=== PATIENT | male | born 1995 | race Caucasian/White ===

== ENCOUNTER 2020-06-08 10:31 | Emergency (ER) | payer SELFPAY ==
[2020-06-08] MEDS ORDERED: ONDANSETRON 4 MG/2 ML VIAL ONE (11:35)
[2020-06-08] MEDS ORDERED: NA CHLORIDE 0.9% 1,000 ML ONE (11:35)
[2020-06-08 11:57] LABS: Absolute Lymphocytes (CBC) 1.7 K/uL (0.7-4.9); Basophils % 0.8 % (0-1.3); Hematocrit 45.4 % (39.6-49.0); Lymphocytes % 22.6 % (15.3-44.8); MPV 9.8 fL (7.6-11.3); RBC Red Blood Cell Count 4.89 M/uL (4.33-5.43)
[2020-06-08 12:15] LABS: Albumin 4.5 g/dL (3.4-5.0); Bilirubin Direct 0.2 mg/dL (0-0.2); Bilirubin Total 0.8 mg/dL (0.2-1.0); Potassium 3.1 mmol/L (3.5-5.1); Protein, Total 7.8 g/dL (6.4-8.2)
--- NOTE | 2020-06-08 12:16 | RAD REPORT ---
EXAM DESCRIPTION: CT - Abdomen Pelvis W Contrast - 06/08/2020 12:03 pm CLINICAL HISTORY: Abdominal pain COMPARISON: 2013 TECHNIQUE: Computed axial tomography of the abdomen pelvis was obtained. 100 cc Isovue-300 was admin istered intravenously. Oral contrast was not requested which limits evaluation of bowel. All CT scans are performed using dose optimization technique as appropriate and may include automated exposure control or mA/KV adjustment according to patient size. FINDINGS: The liver, spleen, pancreas, adrenal and left kidney appear unremarkable. A 5 millimeter c alculus right kidney. No hydronephrosis There is no evidence of diverticulitis. Normal appendix Moderate amount of stool within the colon IMPRESSION: A 5 millimeter nonobstructing right renal calculus
--- NOTE | 2020-06-08 13:48 | EDPHYS ---
Physician Documentation [facility] Name: Peter Amado Age: 25 yrs Sex: Male : 1995 Arrival Date: 06/08/2020 Time: 10:34 Bed 13 Private MD: ED Physician Devendra Aguilera HPI: 06/08 13:12 This 25 yrs old Male presents to ER via Ambulatory with complaints of rn nausea/vomiting. 13:12 The patient presents to the emergency department with nausea, vomiting. Onset: The rn symptoms/episode began/occurred 3 day(s) ago. Possible causes: unknown. The symptoms are aggravated by nothing. The symptoms are alleviated by nothing. Severity of symptoms: At their worst the symptoms were moderate in the emergency department the symptoms are unchanged. The patient has not experienced similar symptoms in the past. The patient has not recently seen a physician. Reports 3 days of right flank pain and nausea/vomiting, no blood in emesis, no trauma, no sob, no cough/fever/chest pain. Urinating ok. Reports hx of kidney failure so wanted to come in to check his kidneys. . Historical: - Allergies: 10:51 No Known Allergies; ca1 - Home Meds: 10:51 Ambien Oral [Active]; ca1 - PMHx: 10:51 Seizures; ca1 - PSHx: 10:51 Hernia repair; ca1 - Immunization history:: Adult Immunizations up to date, Flu vaccine is not up to date. - Social history:: Smoking status: Patient reports the use of cigarette tobacco products, smokes one pack cigarettes per day. - Family history:: not pertinent. - Hospitalizations: : No recent hospitalization is reported. ROS: 13:12 Constitutional: Negative for chills, and weight loss, Eyes: Negative for injury, pain, rn redness, and discharge, Cardiovascular: Negative for chest pain, palpitations, and edema, Respiratory: Negative for shortness of breath, cough, wheezing, and pleuritic chest pain, Abdomen/GI: + nausea/vomiting Back: Negative for injury and pain, : Negative for injury, bleeding, discharge, and swelling, MS/Extremity: Negative for injury and deformity, Skin: Negative for injury, rash, and discoloration, Neuro: Negative for headache, numbness, tingling, and seizure. Exam: 13:12 Constitutional: This is a well developed, well nourished patient who is awake, alert, rn and in no acute distress. Head/Face: Normocephalic, atraumatic. Eyes: Pupils equal round and reactive to light, extra-ocular motions intact. Lids and lashes normal. Conjunctiva and sclera are non-icteric and not injected. Cornea within normal limits. Periorbital areas with no swelling, redness, or edema. ENT: dry MM Cardiovascular: Regular rate and rhythm with a normal S1 and S2. No gallops, murmurs, or rubs. Normal PMI, no JVD. No pulse deficits. Respiratory: No increased work of breathing, no retractions or nasal flaring. Abdomen/GI: soft, non-tender Skin: Warm, dry MS/ Extremity: Pulses equal, no cyanosis. Neurovascular intact. Full, normal range of motion. Equal circumference. Neuro: Awake and alert, GCS 15, oriented to person, place, time, and situation. Cranial nerves II-XII grossly intact. Motor strength 5/5 in all extremities. Sensory grossly intact. Cerebellar exam normal. Normal gait. Vital Signs: 10:45 BP 127 / 88; Pulse 93; Resp 18 S; Temp 99.3(TE); Pulse Ox 96% on R/A; Weight 63.5 kg ca1 (R); Height 5 ft. 10 in. (177.80 cm) (R); Pain 0/10; 12:18 BP 107 / 68; Pulse 92; Resp 18; Pulse Ox 98% on R/A; zb 13:20 BP 108 / 70; Pulse 95; Resp 16; Pulse Ox 99% on R/A; zb 10:45 Body Mass Index 20.09 (63.50 kg, 177.80 cm) ca1 MDM: 11:11 Patient medically screened. rn 13:45 Differential diagnosis: viral gastroenteritis, gastroenteritis, COVID, flu, rn rhabdomyolysis, gastritis. Data reviewed: vital signs, nurses notes, lab test result(s), radiologic studies, CT scan, and as a result, I will discharge patient. Counseling: I had a detailed discussion with the patient and/or guardian regarding: the historical points, exam findings, and any diagnostic results supporting the discharge/admit diagnosis, lab results, radiology results, the need for outpatient follow up, to return to the emergency department if symptoms worsen or persist or if there are any questions or concerns that arise at home. Response to treatment: the patient's symptoms have markedly improved after treatment, and as a result, I will discharge patient. Special discussion: Based on the patient's Hx, exam, and Dx evaluation, there is no indication for emergent surgery or inpatient Tx. It is understood by the patient/guardian that if the Sx's persist or worsen they need to return immediately for re-evaluation. I discussed with the patient/guardian in detail that at this point there is no indication for admission to the hospital. It is understood, however, that if the symptoms persist or worsen the patient needs to return immediately for re-evaluation. ED course: No acute findings on CT abdomen, mild hypokalemia, improved with medication and fluids, no renal failure, no UTI, patient eager to leave, threatened to leave AMA, told results and discharged. . 06/08 11:16 Order name: Basic Metabolic Panel; Complete Time: 12:22 rn 06/08 11:16 Order name: CBC with Diff; Complete Time: 12:10 rn 06/08 11:16 Order name: Hepatic Function; Complete Time: 12: rn 06/08 11:16 Order name: Lipase; Complete Time: 12:22 rn 06/08 11:16 Order name: Flu; Complete Time: 12:43 rn 06/08 11:16 Order name: COVID-19 rn 06/08 11:16 Order name: IV Saline Lock; Complete Time: 11:53 rn 06/08 11:16 Order name: Labs collected and sent; Complete Time: 11:53 rn 06/08 11:16 Order name: CT Abd/Pelvis - IV Contrast Only; Complete Time: 12:22 rn 06/08 11:16 Order name: CK; Complete Time: 12:22 rn 06/08 12:44 Order name: Urine Dipstick-Ancillary (obtain specimen); Complete Time: 13:18 rn 06/08 13:29 Order name: Urine Dipstick--Ancillary (enter results) eb Administered Medications: 11:53 Drug: NS 0.9% 1000 ml Route: IV; Rate: 1000 ml; Site: left forearm; zb 12:20 Follow up: Response: No adverse reaction; IV Status: Completed infusion; IV Intake: zb 1000ml 11:53 Drug: Zofran (Ondansetron) 4 mg Route: IVP; Site: left forearm; zb 13:18 Follow up: Response: No adverse reaction zb Disposition: 06/08/20 13:47 Discharged to Home. Impression: Vomiting, unspecified, Dehydration, Hypokalemia. - Condition is Stable. - Discharge Instructions: Dehydration, Adult, Hypokalemia, Vomiting, Adult. - Prescriptions for Zofran ODT 4 mg Oral tablet,disintegrating - place 1 tablet by TRANSLINGUAL route every 8 hours As needed; 20 tablet. - Medication Reconciliation Form, Thank You Letter, Antibiotic Education, Prescription Opioid Use form. - Follow up: Private Physician; When: As needed; Reason: Recheck today's complaints, Re-evaluation by your physician. - Problem is new. - Symptoms have improved. Signatures: Dispatcher [employer] EDMS Devendra Aguilera MD MD rn Wu, JOSUE Cotter RN, Zipporah, RN RN tay Corrections: (The following items were deleted from the chart) 13:54 13:47 06/08/2020 13:47 Discharged to Home. Impression: Vomiting, unspecified; zb Dehydration; Hypokalemia. Condition is Stable. Forms are Medication Reconciliation Form, Thank You Letter, Antibiotic Education, Prescription Opioid Use. Follow up: Private Physician; When: As needed; Reason: Recheck today's complaints, Re-evaluation by your physician. Problem is new. Symptoms have improved. rn
--- NOTE | 2020-06-08 13:48 | ER ---
Nurse's Notes [facility] Name: Peter Amado Age: 25 yrs Sex: Male : 1995 Arrival Date: 06/08/2020 Time: 10:34 Bed 13 Private MD: Diagnosis: Vomiting, unspecified;Dehydration;Hypokalemia Presentation: 06/08 10:45 Chief complaint: Patient states: Am puking up bile for the past 3 days and pain on R ca1 flank and abdomen from throwing up. Denies diarrhea. Reports urinary frequency and urgency. Coronavirus screen: Client denies travel out of the [place] in the last 14 days. nausea, vomiting. Client presents with at least one sign or symptom that may indicate coronavirus-19. Standard/surgical mask placed on the client. Provider contacted for isolation considerations. Ebola Screen: Patient negative for fever greater than or equal to 101.5 degrees Fahrenheit, and additional compatible Ebola Virus Disease symptoms Patient denies exposure to infectious person. Patient denies travel to an Ebola-affected area in the 21 days before illness onset. No symptoms or risks identified at this time. Initial Sepsis Screen: Does the patient meet any 2 criteria? No. Patient's initial sepsis screen is negative. Does the patient have a suspected source of infection? No. Patient's initial sepsis screen is negative. Risk Assessment: Do you want to hurt yourself or someone else? Patient reports no desire to harm self or others. Onset of symptoms was June 08, 2020. 10:45 Method Of Arrival: Ambulatory ca1 10:45 Acuity: KARLEY 3 ca1 Historical: - Allergies: 10:51 No Known Allergies; ca1 - Home Meds: 10:51 Ambien Oral [Active]; ca1 - PMHx: 10:51 Seizures; ca1 - PSHx: 10:51 Hernia repair; ca1 - Immunization history:: Adult Immunizations up to date, Flu vaccine is not up to date. - Social history:: Smoking status: Patient reports the use of cigarette tobacco products, smokes one pack cigarettes per day. - Family history:: not pertinent. - Hospitalizations: : No recent hospitalization is reported. Screenin:52 Abuse screen: Denies threats or abuse. Denies injuries from another. Nutritional zb screening: No deficits noted. Tuberculosis screening: No symptoms or risk factors identified. Fall Risk None identified. Assessment: 11:50 General: Appears in no apparent distress. comfortable, Behavior is calm, cooperative, zb appropriate for age. Pain: Complains of pain in abdomen diffusely Pain currently is 5 out of 10 on a pain scale. Quality of pain is described as aching. Neuro: Level of Consciousness is awake, alert, obeys commands, Oriented to person, place, time, situation. Cardiovascular: Capillary refill < 3 seconds in bilateral fingers. Respiratory: Airway is patent Respiratory effort is even, unlabored, Respiratory pattern is regular. GI: Abdomen is flat, non-distended, Bowel sounds present X 4 quads. Abdomen is tender to palpation X 4 quads. Reports nausea, vomiting. : No signs and/or symptoms were reported regarding the genitourinary system. EENT: No signs and/or symptoms were reported regarding the EENT system. Derm: No signs and/or symptoms reported regarding the dermatologic system. Derm: Skin is intact, is healthy with good turgor, is thin, Skin is dry, Skin is normal. Musculoskeletal: Circulation, motion, and sensation intact. Capillary refill < 3 seconds, in bilateral fingers. Range of motion: intact in all extremities. 12:50 Reassessment: Patient appears in no apparent distress at this time. Patient and/or zb family updated on plan of care and expected duration. Pain level reassessed. Patient is alert/active/playful, equal unlabored respirations, skin warm/dry/pink. pt resting. in bed states he is ready to leave. ECP informed. 13:45 Reassessment: Patient appears in no apparent distress at this time. Patient and/or zb family updated on plan of care and expected duration. Pain level reassessed. Patient is alert/active/playful, equal unlabored respirations, skin warm/dry/pink. notified pt of POC, need of urine, pt states he is ready to go. Vital Signs: 10:45 BP 127 / 88; Pulse 93; Resp 18 S; Temp 99.3(TE); Pulse Ox 96% on R/A; Weight 63.5 kg ca1 (R); Height 5 ft. 10 in. (177.80 cm) (R); Pain 0/10; 12:18 BP 107 / 68; Pulse 92; Resp 18; Pulse Ox 98% on R/A; zb 13:20 BP 108 / 70; Pulse 95; Resp 16; Pulse Ox 99% on R/A; zb 10:45 Body Mass Index 20.09 (63.50 kg, 177.80 cm) ca1 ED Course: 10:34 Patient arrived in ED. ag5 10:50 Triage completed. ca1 10:51 Arm band placed on right wrist. ca1 11:11 Devendra Aguilera MD is Attending Physician. rn 11:16 Karen Diaz RN is Primary Nurse. zb 11:52 Patient has correct armband on for positive identification. Pulse ox on. NIBP on. Door zb closed. Noise minimized. 11:52 Missed attempt(s): 20 gauge in right antecubital area. Inserted saline lock: 20 gauge zb in left forearm, using aseptic technique. 12:03 CT Abd/Pelvis - IV Contrast Only In Process Unspecified. EDMS 13:18 No provider procedures requiring assistance completed. IV discontinued, intact, zb bleeding controlled, No redness/swelling at site. Pressure dressing applied. Administered Medications: 11:53 Drug: NS 0.9% 1000 ml Route: IV; Rate: 1000 ml; Site: left forearm; zb 12:20 Follow up: Response: No adverse reaction; IV Status: Completed infusion; IV Intake: zb 1000ml 11:53 Drug: Zofran (Ondansetron) 4 mg Route: IVP; Site: left forearm; zb 13:18 Follow up: Response: No adverse reaction zb Intake: 12:20 IV: 1000ml; Total: 1000ml. zb Outcome: 13:47 Discharge ordered by MD. rn 13:53 Discharged to home ambulatory. zb 13:53 Condition: stable 13:53 Discharge instructions given to patient, Instructed on discharge instructions, follow up and referral plans. Demonstrated understanding of instructions, follow-up care. 13:54 Patient left the ED. zb Addendum: 06/09/2020 17:29 Addendum: COVID-19 Result: Negative result given to RN to notify pt. Left voice mail. s v 06/17/2020 09:09 Addendum: COVID-19 Result: Negative result given to RN to notify pt. Attempted to d m5 contact pt regarding negative COVID-19 swab results. Unable to leave voice mail due to the number provided was either not a working number, the voice mail has not been set up, or the voice mailbox is full.. Other: person that answered the phone said that "this is not Peter's number, please stop calling me." Would not let me state what the phone call was regarding before hanging up on me. Signatures: Dispatcher [employer] Yahaira Piña RN JOSUE [email or web address] Melissa Brewer RN Devendra Brunson MD MD rn Acob, Cyndee, RN Maxi Schwartz [facility] Karen Diaz RN JOSUE zcaren
[2020-06-08 15:55] LABS: Urine Blood 1+ (NEG); Urine Glucose NEGATIVE (NEG); Urine Protein 2+ (NEG); Urine Specific Gravity 1.015 (1.005-1.030)
[2020-06-09 22:03] VITALS: TEMP 99.3
[2020-06-09 22:05] VITALS: BP 108/70; O2SAT 99
== END 2020-06-08 13:54 | disposition home or self-care (01) ==
LOC: ER 10:31
DX: E86.0 Dehydration (principal); E87.6 Hypokalemia; Z20.828 Contact with and (suspected) exposure to other viral communicable diseases; F17.210 Nicotine dependence, cigarettes, uncomplicated
CPT/HCPCS: 36415; 74177; 80048; 80076; 81003; 82550; 82565; 83690; 85025; 87804; 96374; 99284; J2405; J7030; Q9967; U0002

== ENCOUNTER 2020-06-12 19:03 | Emergency (ER) | payer SELFPAY ==
[2020-06-12 20:31] LABS: Absolute Lymphocytes (CBC) 2.5 K/uL (0.7-4.9); Basophils % 0.6 % (0-1.3); Hematocrit 46.6 % (39.6-49.0); Lymphocytes % 26.5 % (15.3-44.8); MPV 9.4 fL (7.6-11.3); RBC Red Blood Cell Count 5.12 M/uL (4.33-5.43)
[2020-06-12] MEDS ORDERED: NA CHLORIDE 0.9% 1,000 ML ONE (20:53)
[2020-06-12 20:54] LABS: ALT/SGPT 11 U/L (12-78); AST/SGOT 5 U/L (15-37); Albumin 4.3 g/dL (3.4-5.0); Alkaline Phosphatase 64 U/L (45-117); BUN Blood Urea Nitrogen 12 mg/dL (7-18); Bicarbonate 31 mmol/L (21-32); Bilirubin Direct 0.2 mg/dL (0-0.2); Bilirubin Total 0.5 mg/dL (0.2-1.0); Glucose Level 93 mg/dL (74-106); Lipase 78 U/L (73-393); Magnesium 2.4 mg/dL (1.8-2.4); Potassium 3.1 mmol/L (3.5-5.1); Protein, Total 7.6 g/dL (6.4-8.2); Sodium Level 136 mmol/L (136-145); Troponin (Emerg Dept Use Only) < 0.02 ng/mL (0.0-0.045)
--- NOTE | 2020-06-12 21:12 | RAD REPORT ---
EXAM DESCRIPTION: RAD - Chest Single View - 06/12/2020 9:01 pm CLINICAL HISTORY: CONGESTION Chest pain. COMPARISON: Chest Single View dated 10/21/2016; CHEST SINGLE VIEW dated 04/25/2014; CHEST PA AND LAT 2 VIEW dated 04/22/2012 FINDINGS: Portable technique limits examination quality. The lungs are grossly clear. The heart is normal in size. No displaced fractures. IMPRESSION: No acute intrathoracic process suspected.
[2020-06-12] MEDS ORDERED: ONDANSETRON 4 MG/2 ML VIAL ONE (22:11)
[2020-06-12] MEDS ORDERED: POTASSIUM 25 MEQ EFFERV TAB ONE (22:12)
[2020-06-12] MEDS ORDERED: FAMOTIDINE 20 MG/2 ML VIAL IV ONE (22:12)
[2020-06-12] MEDS ORDERED: D5 0.45 NS 1,000 ML IV ONE (22:27)
--- NOTE | 2020-06-12 23:59 | EDPHYS ---
Physician Documentation [facility] Name: Peter Amado Age: 25 yrs Sex: Male : 1995 Arrival Date: 06/12/2020 Time: 19:09 Bed 14 Private MD: ED Physician Jefferson Hankins HPI: 06/12 21:31 This 25 yrs old Male presents to ER via Ambulatory with complaints of Chest mh7 Congestion, Chest Tightness. 21:31 The patient presents with abdominal pain in the upper abdomen. Onset: The mh7 symptoms/episode began/occurred 2 week(s) ago, and became worse 4 day(s) ago. The symptoms do not radiate. Associated signs and symptoms: Pertinent positives: nausea and vomiting, chest pain, Pertinent negatives: blood in stools, constipation, diarrhea, dysuria, fever, headache, hematuria, palpitations, shortness of breath, testicular pain, vomiting blood. The symptoms are described as intermittent, vague, waxing/waning. Modifying factors: The symptoms are alleviated by nothing, the symptoms are aggravated by food. Severity of pain: At its worst the pain was moderate 4 day(s) ago, in the emergency department the pain is unchanged. The patient has been recently seen at the [facility] Emergency Department, this week. Historical: - Allergies: 19:29 No Known Allergies; ll1 - PMHx: 19:29 Seizures; kidney failure; low K; ll1 - PSHx: 19:29 Hernia repair; ll1 - Immunization history:: Flu vaccine is not up to date. - Social history:: Smoking status: Patient reports the use of cigarette tobacco products, smokes one-half pack cigarettes per day. ROS: 21:31 Constitutional: Negative for fever, chills, and weight loss, Eyes: Negative for injury, mh7 pain, redness, and discharge, ENT: Negative for injury, pain, and discharge, Neck: Negative for injury, pain, and swelling, Respiratory: Negative for shortness of breath, cough, wheezing, and pleuritic chest pain, Back: Negative for injury and pain, : Negative for injury, bleeding, discharge, and swelling, MS/Extremity: Negative for injury and deformity, Skin: Negative for injury, rash, and discoloration, Neuro: Negative for headache, weakness, numbness, tingling, and seizure, Psych: Negative for depression, anxiety, suicide ideation, homicidal ideation, and hallucinations, Allergy/Immunology: Negative for hives, rash, and allergies, Endocrine: Negative for neck swelling, polydipsia, polyuria, polyphagia, and marked weight changes, Hematologic/Lymphatic: Negative for swollen nodes, abnormal bleeding, and unusual bruising. Exam: 21:31 Head/Face: Normocephalic, atraumatic. Eyes: Pupils equal round and reactive to light, mh7 extra-ocular motions intact. Lids and lashes normal. Conjunctiva and sclera are non-icteric and not injected. Cornea within normal limits. Periorbital areas with no swelling, redness, or edema. Neck: Trachea midline, no thyromegaly or masses palpated, and no cervical lymphadenopathy. Supple, full range of motion without nuchal rigidity, or vertebral point tenderness. No Meningismus. Chest/axilla: Normal chest wall appearance and motion. Nontender with no deformity. No lesions are appreciated. Cardiovascular: Regular rate and rhythm with a normal S1 and S2. No gallops, murmurs, or rubs. Normal PMI, no JVD. No pulse deficits. Respiratory: Lungs have equal breath sounds bilaterally, clear to auscultation and percussion. No rales, rhonchi or wheezes noted. No increased work of breathing, no retractions or nasal flaring. 21:31 Back: No spinal tenderness. No costovertebral tenderness. Full range of motion. Skin: Warm, dry with normal turgor. Normal color with no rashes, no lesions, and no evidence of cellulitis. MS/ Extremity: Pulses equal, no cyanosis. Neurovascular intact. Full, normal range of motion. Neuro: Awake and alert, GCS 15, oriented to person, place, time, and situation. Cranial nerves II-XII grossly intact. Motor strength 5/5 in all extremities. Sensory grossly intact. Cerebellar exam normal. Normal gait. Psych: Awake, alert, with orientation to person, place and time. Behavior, mood, and affect are within normal limits. 21:31 Constitutional: The patient appears in no acute distress, alert, awake, uncomfortable. 21:31 Abdomen/GI: Inspection: abdomen appears normal, Bowel sounds: normal, in all quadrants, Palpation: moderate abdominal tenderness, in all quadrants, Rectal exam: the exam is deferred, because of patient request, Indicators: McBurney's point is not tender, Martinez's sign is negative, Rovsing's sign is negative, Obturator sign is negative, Psoas sign is negative, Liver: no appreciated palpable abnormalities, Hernia: not appreciated. Vital Signs: 19:26 BP 119 / 93; Pulse 107; Resp 16; Temp 98.0; Pulse Ox 98% on R/A; Height 5 ft. 10 in. ll1 (177.80 cm); Pain 9/10; 20:00 BP 131 / 99; Pulse 84; Resp 18; Pulse Ox 10% on R/A; wh 21:30 BP 125 / 84; Pulse 71; Resp 18; Pulse Ox 99% on R/A; 23:00 BP 116 / 80; Pulse 81; Resp 18; Pulse Ox 100% on R/A; 06/13 00:06 BP 122 / 81; Pulse 76; Resp 18; Pulse Ox 99% on R/A; MDM: 06/12 23:56 Differential diagnosis: appendicitis, bowel obstruction, cholecystitis, Cholelithiasis, [facility] diverticulitis, gastritis, gastroesophageal reflux disease, non-specific abd pain, pancreatitis, Peptic Ulcer Disease, urinary tract infection. Data reviewed: vital signs, nurses notes, old medical records, lab test result(s), amylase and lipase, cardiac enzymes, CBC, electrolytes, urinalysis, urine drug screen, EKG, radiologic studies, CT scan, plain films. Data interpreted: Pulse oximetry: on room air is 100 %. Interpretation: normal. Counseling: I had a detailed discussion with the patient and/or guardian regarding: the historical points, exam findings, and any diagnostic results supporting the discharge/admit diagnosis, lab results, radiology results, the need for outpatient follow up, to return to the emergency department if symptoms worsen or persist or if there are any questions or concerns that arise at home. Response to treatment: the patient's symptoms have resolved after treatment, the patient's blood pressure is in an acceptable range, mental status has returned to baseline, the patient no longer shows bradycardia, the patient is not short of breath, the patient is not tachycardic, the patient's pain is gone, the patient's temperature has normalized. 23:58 Patient medically screened. [facility] 06/12 19:47 Order name: Basic Metabolic Panel [facility] 06/12 19:47 Order name: CBC with Diff [facility] 06/12 19:47 Order name: Hepatic Function [facility] 06/12 19:47 Order name: Lipase [facility] 06/12 19:47 Order name: Troponin (emerg Dept Use Only) [facility] 06/12 19:48 Order name: Magnesium [facility] 06/12 19:48 Order name: Basic Metabolic Panel; Complete Time: 21:45 EDMS 06/12 19:48 Order name: CBC with Automated Diff; Complete Time: 21:45 EDMS 06/12 19:48 Order name: Liver (Hepatic) Function; Complete Time: 21:45 EDMS 06/12 19:48 Order name: Lipase; Complete Time: 21:45 [facility] 06/12 19:48 Order name: Troponin (Emerg Dept Use Only); Complete Time: 21:45 [facility] 06/12 19:48 Order name: Magnesium; Complete Time: 21:45 [facility] 06/12 22:27 Order name: UDS [facility] 06/12 23:53 Order name: Urine Dipstick--Ancillary (enter results) [facility] 06/12 19:47 Order name: IV Saline Lock; Complete Time: 20:29 [facility] 06/12 19:47 Order name: Labs collected and sent; Complete Time: 20:29 [facility] 06/12 19:47 Order name: EKG - Nurse/Tech; Complete Time: 20:29 [facility] 06/12 19:47 Order name: Urine Dipstick-Ancillary (obtain specimen); Complete Time: 23:50 [facility] 06/12 20:31 Order name: Chest Single View XRAY; Complete Time: 21:45 [facility] 06/12 22:10 Order name: CT Abd/Pelvis - Without Contrast [facility] Administered Medications: 20:42 Drug: NS 0.9% 1000 ml Route: IV; Rate: 1000 ml; Site: left antecubital; wh 23:50 Follow up: Response: No adverse reaction; IV Status: Completed infusion 21:59 Drug: Zofran (Ondansetron) 4 mg Route: IVP; Site: left antecubital; wh 23:49 Follow up: Response: No adverse reaction; Nausea is decreased wh 22:01 Drug: Pepcid 20 mg Route: IVP; Site: left antecubital; wh 23:49 Follow up: Response: No adverse reaction 22:01 Drug: Potassium Effervescent Tablet 50 mEq Route: PO; 23:49 Follow up: Response: No adverse reaction 22:15 Drug: D5-1/2 NS 1000 ml Route: IV; Rate: per protocol; Site: left antecubital; 23:49 Follow up: Response: No adverse reaction; IV Status: Completed infusion Disposition: 06/12/20 23:58 Discharged to Home. Impression: Generalized abdominal pain, Vomiting, Hypokalemia. - Condition is Stable. - Discharge Instructions: Nausea and Vomiting, Adult, [id number], Abdominal Pain, Adult, [id number], Hypokalemia. - Prescriptions for Zofran ODT 4 mg Oral tablet,disintegrating - place 1 tablet by TRANSLINGUAL route every 8 hours As needed; 10 tablet. Bentyl 20 mg Oral Tablet - take 1 tablet by ORAL route every 6 hours As needed; 20 tablet. Pepcid 20 mg Oral Tablet - take 1 tablet by ORAL route every 12 hours for 5 days; 10 tablet. - Medication Reconciliation Form, Thank You Letter, Antibiotic Education, Prescription Opioid Use form. - Follow up: Private Physician; When: 1 - 2 days; Reason: Worsening of condition, Recheck today's complaints, Continuance of care, Re-evaluation by your physician. - Problem is an ongoing problem. - Symptoms have improved. Signatures: Dispatcher [employer] EDMS John Arriaga Jessica Diamond RN RN ll1 Jefferson Hankins MD MD mh7 Corrections: (The following items were deleted from the chart) 23:55 23:51 Fluid Challenge ordered. 7 06/13 00:08 06/12 23:58 06/12/2020 23:58 Discharged to Home. Impression: Generalized abdominal wh pain; Vomiting; Hypokalemia. Condition is Stable. Forms are Medication Reconciliation Form, Thank You Letter, Antibiotic Education, Prescription Opioid Use. Follow up: Private Physician; When: 1 - 2 days; Reason: Worsening of condition, Recheck today's complaints, Continuance of care, Re-evaluation by your physician. Problem is an ongoing problem. Symptoms have improved. 7
--- NOTE | 2020-06-12 23:59 | ER ---
Nurse's Notes [facility] Name: Peter Amado Age: 25 yrs Sex: Male : 1995 Arrival Date: 06/12/2020 Time: 19:09 Bed 14 Private MD: Diagnosis: Generalized abdominal pain;Vomiting;Hypokalemia Presentation: 06/12 19:26 Chief complaint: Patient states: Body cramping, abdominal pain, N/V for 12 days. Seen ll1 here 4 days ago for similar stuff. Had dehydration and low potassium. Coronavirus screen: Client denies travel out of the [place] in the last 14 days. At this time, the client does not indicate any symptoms associated with coronavirus-19. Ebola Screen: Patient denies travel to an Ebola-affected area in the 21 days before illness onset. Initial Sepsis Screen: Does the patient meet any 2 criteria? HR > 90 bpm. No. Patient's initial sepsis screen is negative. Does the patient have a suspected source of infection? Yes: Acute abdominal pain. Risk Assessment: Do you want to hurt yourself or someone else? Patient reports no desire to harm self or others. Onset of symptoms was May 31, 2020. 19:26 Method Of Arrival: Ambulatory [facility] 19:26 Acuity: KARLEY 2 ll1 Historical: - Allergies: 19:29 No Known Allergies; ll1 - PMHx: 19:29 Seizures; kidney failure; low K; ll1 - PSHx: 19:29 Hernia repair; ll1 - Immunization history:: Flu vaccine is not up to date. - Social history:: Smoking status: Patient reports the use of cigarette tobacco products, smokes one-half pack cigarettes per day. Screenin:00 Abuse screen: Denies threats or abuse. Denies injuries from another. Nutritional wh screening: No deficits noted. Tuberculosis screening: No symptoms or risk factors identified. Fall Risk None identified. Assessment: 19:45 General: Appears in no apparent distress. Behavior is calm, cooperative, appropriate wh for age. Pain: Complains of pain in chest pain and abdominal pain Pain does not radiate. Pain began a few days ago. Pain: Quality of pain is described as crampy. Neuro: Level of Consciousness is awake, alert, obeys commands, Oriented to person, place, time, situation, Appropriate for age. Cardiovascular: Reports chest pain, Heart tones S1 S2. Respiratory: Airway is patent Respiratory effort is even, unlabored, Respiratory pattern is regular, symmetrical, Breath sounds are clear bilaterally. GI: Abdomen is flat, non-distended, Bowel sounds present X 4 quads. Abd is soft and non tender X 4 quads. Reports lower abdominal pain, upper abdominal pain, nausea. : No signs and/or symptoms were reported regarding the genitourinary system. EENT: No signs and/or symptoms were reported regarding the EENT system. Derm: Skin is intact, is healthy with good turgor, Skin is pink, warm \T\ dry. normal. Musculoskeletal: Circulation, motion, and sensation intact. 21:00 Reassessment: Patient appears in no apparent distress at this time. No changes from previously documented assessment. Patient and/or family updated on plan of care and expected duration. Pain level reassessed. Patient is alert, oriented x 3, equal unlabored respirations, skin warm/dry/pink. 22:30 Reassessment: Patient appears in no apparent distress at this time. Patient and/or family updated on plan of care and expected duration. Pain level reassessed. Patient is alert, oriented x 3, equal unlabored respirations, skin warm/dry/pink. 06/13 00:06 Reassessment: Patient appears in no apparent distress at this time. Patient and/or family updated on plan of care and expected duration. Pain level reassessed. Patient is alert, oriented x 3, equal unlabored respirations, skin warm/dry/pink. Patient states feeling better. Patient states symptoms have improved. Vital Signs: 06/12 19:26 BP 119 / 93; Pulse 107; Resp 16; Temp 98.0; Pulse Ox 98% on R/A; Height 5 ft. 10 in. ll1 (177.80 cm); Pain 9/10; 20:00 BP 131 / 99; Pulse 84; Resp 18; Pulse Ox 10% on R/A; 21:30 BP 125 / 84; Pulse 71; Resp 18; Pulse Ox 99% on R/A; 23:00 BP 116 / 80; Pulse 81; Resp 18; Pulse Ox 100% on R/A; 06/13 00:06 BP 122 / 81; Pulse 76; Resp 18; Pulse Ox 99% on R/A; ED Course: 06/12 19:09 Patient arrived in ED. bp1 19:28 Triage completed. ll1 19:29 Arm band placed on. ll1 19:38 Jefferson Hankins MD is Attending Physician. 7 19:57 John Arriaga is Primary Nurse. wh 20:00 Patient has correct armband on for positive identification. Bed in low position. Call light in reach. Side rails up X 1. Pulse ox on. NIBP on. 20:00 Patient maintains SpO2 saturation greater than 95% on room air. 20:35 Inserted saline lock: 20 gauge in left antecubital area, using aseptic technique. Blood wh collected. 21:01 Chest Single View XRAY In Process Unspecified. EDMS 23:10 CT Abd/Pelvis - Without Contrast In Process Unspecified. EDLA 06/13 00:07 No provider procedures requiring assistance completed. IV discontinued, intact, bleeding controlled, No redness/swelling at site. Administered Medications: 06/12 20:42 Drug: NS 0.9% 1000 ml Route: IV; Rate: 1000 ml; Site: left antecubital; 23:50 Follow up: Response: No adverse reaction; IV Status: Completed infusion 21:59 Drug: Zofran (Ondansetron) 4 mg Route: IVP; Site: left antecubital; 23:49 Follow up: Response: No adverse reaction; Nausea is decreased 22:01 Drug: Pepcid 20 mg Route: IVP; Site: left antecubital; 23:49 Follow up: Response: No adverse reaction 22:01 Drug: Potassium Effervescent Tablet 50 mEq Route: PO; 23:49 Follow up: Response: No adverse reaction 22:15 Drug: D5-1/2 NS 1000 ml Route: IV; Rate: per protocol; Site: left antecubital; 23:49 Follow up: Response: No adverse reaction; IV Status: Completed infusion Outcome: 23:58 Discharge ordered by . 7 06/13 00:07 Discharged to home ambulatory, with family. Condition: stable Discharge instructions given to patient, family, Instructed on discharge instructions, follow up and referral plans. medication usage, POC Demonstrated understanding of instructions, follow-up care, medications, POC Prescriptions given X 3. 00:08 Patient left the ED. Signatures: Dispatcher [employer] John Vo Lynsay, RN RN ll1 Juliana Yi Maurice, MD MD mh7
[2020-06-13 00:20] LABS: Barbiturates NEGATIVE (NEGATIVE); Benzodiazepines POSITIVE (NEGATIVE); Cocaine NEGATIVE (NEGATIVE); METHAMPHETAM NEGATIVE (NEGATIVE); Methadone NEGATIVE (NEGATIVE); Opiates NEGATIVE (NEGATIVE); Phencyclidine POSITIVE (NEGATIVE); THC Cannibis POSITIVE (NEGATIVE)
[2020-06-13 00:33] LABS: Urine Blood NEGATIVE (NEG); Urine Glucose 2+ (NEG); Urine Protein 2+ (NEG); Urine Specific Gravity 1.025 (1.005-1.030); Urine pH 6.5 (5.0-7.0)
[2020-06-13 00:36] VITALS: TEMP 98
[2020-06-13 00:41] VITALS: BP 122/81; O2SAT 99
--- NOTE | 2020-06-13 13:52 | RAD REPORT ---
EXAM DESCRIPTION: CT Abdomen and Pelvis Without Intravenous Contrast CLINICAL HISTORY: The patient is 25 years old and is Male; ABD PAIN TECHNIQUE: Axial computed tomography images of the abdomen and pelvis without intravenous contrast. Sagittal and coronal reformatted images were created and reviewed. This CT exam was performed usi ng one or more of the following dose reduction techniques: automated exposure control, adjustment o f the mA and/or kV according to patient size, and/or use of iterative reconstruction technique. DLP: 388 mGy*cm COMPARISON: None. FINDINGS: LUNG BASES: Lung bases are clear. ABDOMEN: LIVER: Unremarkable. GALLBLADDER AND BILE DUCTS: Unremarkable. No calcified stones. No ductal dilation. PANCREAS: Unremarkable. No ductal dilation. SPLEEN: Multiple splenic granulomas. ADRENALS: Unremarkable. No mass. KIDNEYS AND URETERS: Nonobstructive right renal stone. STOMACH AND BOWEL: Unremarkable. No obstruction. No mucosal thickening. PELVIS: APPENDIX: The appendix is seen and is within normal limits. BLADDER: Unremarkable. No stones. REPRODUCTIVE: Unremarkable as visualized. ABDOMEN and PELVIS: INTRAPERITONEAL SPACE: Unremarkable. No free air. No significant fluid collection. BONES/JOINTS: Trace retrolisthesis of L5 on S1. No acute fracture. No dislocation. SOFT TISSUES: Unremarkable. VASCULATURE: Unremarkable. No abdominal aortic aneurysm. LYMPH NODES: Unremarkable. No enlarged lymph nodes. IMPRESSION: 1. No acute abdominal or pelvic abnormality. 2. Nonobstructive right renal stone. 3. Prior granulomatous disease. Electronically signed by: Jose Farah DO 06/12/2020 11:26 PM CERAMIC PAINTER Due to temporary technical issues with the PACS/Fluency reporting system, reports are being signed by the in house radiologists without review as a courtesy to insure prompt reporting. The interpreting radiologist is fully responsible for the content of the report.
== END 2020-06-13 00:08 | disposition home or self-care (01) ==
LOC: ER 19:03
DX: R10.84 Generalized abdominal pain (principal); R11.10 Vomiting, unspecified; E87.6 Hypokalemia; F17.210 Nicotine dependence, cigarettes, uncomplicated
CPT/HCPCS: 36415; 71045; 74176; 80048; 80076; 80307; 81003; 83690; 83735; 84484; 85025; 93005; 96361; 96365; 96366; 96375; 99284; J2405; J7030; J7799

== ENCOUNTER 2020-10-13 16:50 | Emergency (ER) | payer SELFPAY ==
--- NOTE | 2020-10-13 17:48 | ER ---
Nurse's Notes [facility] Name: Peter Amado Age: 25 yrs Sex: Male : 1995 Arrival Date: 10/13/2020 Time: 16:58 Bed External Waiting Private MD: Diagnosis: Presentation: 10/13 17:28 Note pt wants mother in with triage, doesn't know why he is here. em ED Course: 16:58 Patient arrived in ED. ds1 Administered Medications: No medications were administered Outcome: 17:48 Patient left the ED. em Signatures: Champ East RN RN Magy Smith dsLeanna
== END 2020-10-13 17:48 | disposition left against medical advice (07) ==
LOC: ER 16:50
DX: R69 Illness, unspecified (principal); Z53.21 Procedure and treatment not carried out due to patient leaving prior to being seen by health care provider